=== PATIENT | male | born 1955 | race Caucasian/White ===

== ENCOUNTER 2017-05-10 15:45 | Emergency (ER) | payer MEDICAID ==
[2017-05-10 15:52] VITALS: BP 137/86
--- NOTE | 2017-05-10 16:20 | EDM.PDOC ---
ED HPI GENERAL MEDICAL PROBLEM - General Chief Complaint: Cardiovascular Problem Stated Complaint: A FIB Time Seen by Provider: 05/10/17 16:07 Source of Information: Reports: Patient, Family, Old Records, RN Notes Reviewed History Limitations: Reports: No Limitations - History of Present Illness INITIAL COMMENTS - FREE TEXT/NARRATIVE: 61-year-old gentleman presents emergency department day complaint of palpitations and fatigue with shortness of breath upon exertion at rest he feels fine, does have a history of a non-STEMI however patient reports that angiogram reveals no coronary artery disease however records are unavailable to us he did have an elevated troponin. In 2016. History of atrial fibrillation recently underwent cardioversion on April 23, he is also on Coumadin for history of DVT with pulmonary embolism. - Related Data Allergies Allergy/AdvReac Type Severity Reaction Status Date / Time No Known Allergies Allergy Verified 03/08/15 03:11 Home Meds: Home Meds Metoprolol Tartrate [Lopressor] 25 mg PO BID 05/10/17 [History] Warfarin [Coumadin] 7.5 mg PO DAILY 05/10/17 [History] amLODIPine [Norvasc] 10 mg PO DAILY 05/10/17 [History] atorvaSTATin [Lipitor] 80 mg PO DAILY 05/10/17 [History] Past Medical History Cardiovascular History: Reports: Afib, Blood Clots/VTE/DVT Other Cardiovascular History: Coarcatation of aortia. Repair 1977 Gastrointestinal History: Reports: Chronic Constipation Other Gastrointestinal History: Diverticulitis Genitourinary History: Reports: Prostate Disorder Other Genitourinary History: large prostate Hematologic History: Reports: Anticoagulation Therapy Social & Family History - Tobacco Use Smoking Status *Q: Never Smoker Second Hand Smoke Exposure: No - Caffeine Use Caffeine Use: Reports: Coffee - Alcohol Use Days Per Week of Alcohol Use: 4 Number of Drinks Per Day: 4 Total Drinks Per Week: 16 - Recreational Drug Use Recreational Drug Use: No ED ROS GENERAL - Review of Systems Review Of Systems: See Below Constitutional: Reports: Weakness, Fatigue HEENT: Reports: No Symptoms Respiratory: Reports: Shortness of Breath Cardiovascular: Reports: Dyspnea on Exertion. Denies: Chest Pain GI/Abdominal: Reports: No Symptoms : Reports: No Symptoms Musculoskeletal: Reports: No Symptoms Skin: Reports: No Symptoms ED EXAM, GENERAL - Physical Exam Exam: See Below Free Text/Narrative:: General: Male, not in any distress, alert and oriented x3 HEENT: head is atraumatic normocephalic, eyes pupils equal round reactive to light, sclera clear no conjunctivitis appreciated. Ears tympanic membranes clear and colbert landmarks and light reflex are present bilaterally canals are clear. Nose no septal deviation, nares are clear, no blood present. Mouth mucosa is moist and pink no erythema or exudate noted in soft palate, tongue is midline uvula is midline, dentition is intact. Neck: Supple no thyromegaly no tracheal deviation. Nodes: Cervical nodes subclavicular nodes nontender no palpable lymphadenopathy noted. Lungs: clear to auscultation bilaterally with symmetrical respirations, no adventitious noise appreciated. CV: Regular rate and rhythm S1 and S2 appreciated no murmurs rubs or gallops noted. Abdomen: Soft, nontender, no palpable masses or organomegaly appreciated, no distention no guarding bowel sounds are present, . Neuro: Cranial nerves II through XII grossly intact Skin: Warm and dry, intact Extremities: No lower extremity edema appreciated, Course - Vital Signs Last Recorded V/S: Last Vital Signs Temp 97.7 F 05/10/17 15:52 Pulse 72 05/10/17 15:52 Resp 16 05/10/17 15:52 BP 137/86 05/10/17 15:52 Pulse Ox 98 05/10/17 15:52 - Orders/Labs/Meds Orders: Active Orders 24 hr Category Date Time Status Cardiac Monitoring [RC] .As Directed Care 05/10/17 16:14 Active EKG Documentation Completion [RC] ASDIRECTED Care 05/10/17 16:15 Active Chest 2V [CR] Stat Exams 05/10/17 16:15 Taken EKG 12 Lead [EK] Stat Ther 05/10/17 16:14 Ordered Labs: Laboratory Tests 05/10/17 05/10/17 05/10/17 Range/Units 16:23 16:23 16:23 WBC 6.3 (4.5-11.0) K/uL RBC 5.28 (4.30-5.90) M/uL Hgb 15.2 H (12.0-15.0) g/dL Hct 45.6 (40.0-54.0) % MCV 86 (80-98) fL MCH 29 (27-31) pg MCHC 33 (32-36) % Plt Count 277 (150-400) K/uL Neut % (Auto) 65 (36-66) % Lymph % (Auto) 19 L (24-44) % Allen % (Auto) 10 H (2-6) % Eos % (Auto) 5 H (2-4) % Baso % (Auto) 1 (0-1) % PT 21.3 H (9.5-12.0) sec INR 1.94 H (0.80-1.20) Sodium 140 (140-148) mmol/L Potassium 4.1 (3.6-5.2) mmol/L Chloride 102 (100-108) mmol/L Carbon Dioxide 29 (21-32) mmol/L Anion Gap 8.9 (5.0-14.0) mmol/L BUN 17 (7-18) mg/dL Creatinine 1.1 (0.8-1.3) mg/dL Est Cr Clr Drug Dosing 74.66 mL/min Estimated GFR (MDRD) > 60 (>60) Glucose 94 (74-106) mg/dL Calcium 9.7 (8.5-10.1) mg/dL Total Bilirubin 0.5 (0.2-1.0) mg/dL AST 25 (15-37) U/L ALT 54 D (12-78) U/L Alkaline Phosphatase 80 (46-116) U/L Troponin I < 0.017 (0.000-0.056) ng/mL NT-Pro-B Natriuret Pep 129 H (5-125) pg/mL Total Protein 7.3 (6.4-8.2) g/dL Albumin 3.9 (3.4-5.0) g/dL Globulin 3.4 (2.3-3.5) g/dL Albumin/Globulin Ratio 1.1 L (1.2-2.2) Departure - Departure Time of Disposition: 17:34 Disposition: Home, Self-Care 01 Condition: Fair Clinical Impression: Palpitations Referrals: Willie Lynn NP [Primary Care Provider] - Forms: ED Department Discharge Additional Instructions: Consider stopping the metoprolol for a couple days and reevaluating symptoms, caution is advised that stopping this medication may induce atrial fibrillation , please keep your follow-up appointment with your primary care provider, call return to the emergency department worsening of symptoms - My Orders Last 24 Hours: My Active Orders 12/07/17 16:14 Cardiac Monitoring [RC] .As Directed EKG 12 Lead [EK] Stat 05/10/17 16:15 EKG Documentation Completion [RC] ASDIRECTED Chest 2V [CR] Stat - Assessment/Plan Last 24 Hours: My Active Orders 05/10/17 16:14 Cardiac Monitoring [RC] .As Directed EKG 12 Lead [EK] Stat 05/10/17 16:15 EKG Documentation Completion [RC] ASDIRECTED Chest 2V [CR] Stat Plan: Assessment Acuity = acute Site and laterality = palpitations complicated patient with known history of atrial fibrillation on chronic anticoagulation recently starting new medications of metoprolol, Coumadin and Lipitor Etiology = unclear etiology possible relationship to metoprolol Manifestations = none Location of injury = Home Lab values = CBC, CMP, troponin all negative chest x-ray I did review films myself I cannot appreciate any acute process, the official read from radiology is pending EKG demonstrates sinus rhythm with a right bundle branch block, he was evaluated with a monitor doing both exercise and with lifting exercises we could not reproduce any rhythm he remained in sinus Plan I did review lab work with him as well as EKG and chest x-ray discussed options and since he recently had a catheterization in 2016 of which she reports no coronary artery disease he is currently anticoagulated possibility exists this may be a side effect from the metoprolol half-life is about 8 hours discussed the possibility of stopping this medication for a couple days and reevaluating he has a follow-up appointment with his primary care on the , did give caution that stopping the beta shasta may cause him to go into atrial fibrillation of which he is aware Patient was in agreement with the plan all questions were answered, they were instructed to return to the emergency department or call for worsening symptoms. This note was dictated using [employer] voice recognition software please call with any questions.
--- NOTE | 2017-05-11 08:54 | CR ---
Chest 2V INDICATION: Palpitations FINDINGS: Left ventricle is enlarged. Tortuous and calcified aorta which produces opacity overlying t he spine on the lateral view. No focal consolidation. Chest otherwise negative.
== END 2017-05-10 17:44 | disposition home or self-care (01) ==
LOC: JP.ED 15:45
DX: R00.2 Palpitations (principal); I48.91 Unspecified atrial fibrillation; Z79.01 Long term (current) use of anticoagulants; Z86.718 Personal history of other venous thrombosis and embolism; Z79.899 Other long term (current) drug therapy
CPT/HCPCS: 36415; 71020; 71020-26; 80053; 83880; 84484; 85025; 85610; 93005; 99284-25